=== PATIENT | male | born 1970 | race Caucasian/White ===

== ENCOUNTER → 2019-03-02 | Outpatient (CLI) | payer OTHER ==
[~2019-03-02] MED LIST: IOHEXOL 300 MG/ML 75 ML VIAL. IV ONE
--- NOTE | 2019-03-02 16:58 | RAD ---
CT study of the pelvis with contrast Clinical indications: Prior hernia repair surgery. Right groin pain where mesh was placed. TECHNIQUE: After IV infusion of 75 cc of Omnipaque 300, helical CT scanning of the pelvis was performed. PQRS compliance Statement One or more of the following individualized dose reduction techniques were utilized for this study: 1. Automated exposure control 2. Adjustment of the mA and/or kV according to patient size 3. Use of iterative reconstruction technique COMPARISON: None available. FINDINGS: No inguinal hernia or foreign body is evident. No soft tissue mass or abscess is evident. No enlarged pelvic lymphadenopathy is evident. Urinary bladder wall is smooth. No free air or free fluid or mesenteric edema is seen within the pelvis. No lytic process is evident. IMPRESSION: No significant CT abnormality is evident. Electronically signed by: Kelvin Brown MD (03/02/2019 4:56 PM) [id number]
== END | disposition home or self-care (01) ==
LOC: CT 11:02
PROVIDERS: ATTEND Surgery
DX: R10.30 Lower abdominal pain, unspecified (principal)
CPT/HCPCS: 72193; Q9967

== ENCOUNTER → 2020-12-12 | Outpatient (CLI) | payer OTHER ==
[~2020-12-12] MED LIST changes: +HYDR25TA10 PO; -IOHEXOL 300 MG/ML 75 ML VIAL. IV ONE; +MONT10TA80 PO
== END ==
LOC: LAB 13:00
PROVIDERS: ATTEND Nurse Anesthetist, Certified Registered
DX: Z01.812 Encounter for preprocedural laboratory examination (principal); U07.1 COVID-19
CPT/HCPCS: U0003

== ENCOUNTER 2022-03-01 10:18 | Emergency (ER) | payer OTHER ==
[~2022-03-01] VITALS: Ht 180.3 cm; Wt 94.0 kg
--- NOTE | 2022-03-01 10:36 | PHYS DOC ---
General Adult EDM: Chief Complaint: CHEST PAIN HPI: HPI: Patient is a 51-year-old male who presents to the emergency department for right-sided chest wall tenderness. Patient reports that he was placed on lisinopril 2 weeks ago and since then has had a cough. He reports that his cough is gotten worse and he started experiencing right-sided lower rib pain that he describes as a stabbing pain with cough. He reports he feels that his lungs are irritated. He rates his pain 3 out of 10. No radiation of pain. No treatment for pain. Patient denies fevers, shortness of breath, nausea, vomiting. Only medical history is hypertension. He does not smoke. Patient's primary care provider is at [facility]. (MARTI ANDRE APRN) Review of Systems: Review of Systems: Constitutional: See HPI Respiratory: See HPI Cardiovascular: See HPI GI: See HPI Musculoskeletal: See HPI (MARTI ANDRE APRN) Allergies: Allergies: Allergies Coded Allergies Type Severity Reaction Last Updated Verified No Known Drug Allergies 03/02/19 No (MARTI ANDRE APRN) Physical Exam: PE: Constitutional: Well developed, well nourished, no acute distress, non-toxic appearance. [] HENT: Normocephalic, atraumatic, bilateral external ears normal, oropharynx moist, no oral exudates, nose normal. [] Eyes: PERRL, EOMI, conjunctiva normal, no discharge. [] Neck: Normal range of motion, no tenderness, supple, no stridor. [] Cardiovascular:Heart rate regular rhythm, no murmur, sternal and right sided rib tenderness with palpation segments Lungs & Thorax: Bilateral breath sounds clear to auscultation [] Abdomen: Bowel sounds normal, soft, no tenderness, no masses, no pulsatile masses. [] Skin: Warm, dry, no erythema, no rash. [] Back: No tenderness, normal range of motion Extremities: No tenderness, no cyanosis, no clubbing, ROM intact, no edema. [] Neurologic: Alert and oriented X 3, normal motor function, normal sensory function, no focal deficits noted. [] Psychologic: Affect normal, judgement normal, mood normal. [] (MARTI ANDRE APRN) Current Patient Data: Labs: Laboratory Tests Test 03/01/22 10:40 White Blood Count 5.3 x10^3/uL Red Blood Count 5.12 x10^6/uL Hemoglobin 15.8 g/dL Hematocrit 45.6 % Mean Corpuscular Volume 89 fL Mean Corpuscular Hemoglobin 31 pg Mean Corpuscular Hemoglobin Concent 35 g/dL Red Cell Distribution Width 12.7 % Platelet Count 251 x10^3/uL Neutrophils (%) (Auto) 49 % Lymphocytes (%) (Auto) 42 % Monocytes (%) (Auto) 7 % Eosinophils (%) (Auto) 1 % Basophils (%) (Auto) 1 % Neutrophils # (Auto) 2.6 x10^3uL Lymphocytes # (Auto) 2.2 x10^3/uL Monocytes # (Auto) 0.4 x10^3/uL Eosinophils # (Auto) 0.1 x10^3/uL Basophils # (Auto) 0.1 x10^3/uL Sodium Level 140 mmol/L Potassium Level 4.2 mmol/L Chloride Level 106 mmol/L Carbon Dioxide Level 26 mmol/L Anion Gap 8 Blood Urea Nitrogen 25 mg/dL Creatinine 1.1 mg/dL Estimated GFR (Cockcroft-Gault) 70.6 BUN/Creatinine Ratio 23 Glucose Level 100 mg/dL Calcium Level 9.0 mg/dL Total Bilirubin 0.5 mg/dL Aspartate Amino Transf (AST/SGOT) 18 U/L Alanine Aminotransferase (ALT/SGPT) 47 U/L Alkaline Phosphatase 71 U/L Troponin I High Sensitivity 5 ng/L Total Protein 7.1 g/dL Albumin 4.1 g/dL Albumin/Globulin Ratio 1.4 Current Medications Medications (Trade) Dose Ordered Sig/Jovita Route PRN Reason Start Time Stop Time Status Last Admin Dose Admin Morphine Sulfate (Morphine 2mg Syringe) 2 mg 1X ONCE IV 03/01/22 10:45 03/01/22 10:46 DC (MARTI ANDRE ORTHODONTIST ASSISTANT) EKG: EKG: [] EKG performed by ER staff at 1042 shows sinus rhythm with a rate of 73, QTC is 424, no STEMI read by Dr. Bonner at 1044 (MARTI ANDRE ORTHODONTIST ASSISTANT) Radiology/Procedures: Radiology/Procedures: []PROCEDURE: CHEST PA & LATERAL PA and lateral views of the chest. Comparison: None. Indication: Chest pain Findings: The heart size is normal. No pneumothorax or effusion. No air space or interstitial disease. The bony structures are intact. Impression: 1. No acute cardiopulmonary process. Electronically signed by: Ashish Cabrera MD (03/01/2022 11:02 AM) [id number] DICTATED AND SIGNED BY: ASHISH CABRERA MD DATE: 03/01/22 110 CC: LANDON HUMPHRIES; MARTI ANDRE APRN ~ (MARTI ANDRE APRN) Heart Score: C/O Chest Pain: Yes HEART Score for Chest Pain: HEART Score for Chest Pain Response (Comments) Value History Slighlty/Non-Suspicious 0 Age >45 - < 65 1 Risk Factors 1 or 2 Risk Factors 1 Total 2 Risk Factors: Risk Factors: DM, Current or recent (<one month) smoker, HTN, HLP, family history of CAD, obesity. Risk Scores: Score 0 - 3: 2.5% MACE over next 6 weeks - Discharge Home Score 4 - 6: 20.3% MACE over next 6 weeks - Admit for Clinical Observation Score 7 - 10: 72.7% MACE over next 6 weeks - Early Invasive Strategies (MARTI ANDRE APRN) Course & Med Decision Making: Course & Med Decision Making Pertinent Labs and Imaging studies reviewed. (See chart for details) [] Patient resents to the emergency department for chest pain and cough after being placed on lisinopril. Chest pain is worse with cough and it is reproducible with palpation. Work-up in the ER troponin EKG to ensure there is not a cardiac cause. She was chest x-ray performed to rule out pneumonia or rib injury. Patient treated with pain medication. Patient reports that he has a follow-up appointment with his primary care provider on Friday. Patient's lab work is unremarkable. His chest x-ray shows no acute findings. Patient is likely experiencing musculoskeletal/chest wall tenderness due to his cough. He is advised to take anti-inflammatory medications and follow-up with his doctor on Friday regarding medication adjustment. I discussed with patient all findings and diagnostic testing as well as the need to follow-up with PCP for further evaluation and treatment or return to the ER if any new or worsening symptoms. Strict return precautions were also discussed at length. Patient voiced understanding and agreement with the plan. Patient is hemodynamically stable at the time of disposition. (MARTI ANDRE APRN) Dragon Disclaimer: Dragon Disclaimer: This electronic medical record was generated, in whole or in part, using a voice recognition dictation system. (MARTI ANDRE APRN) Attending Co-Sign The patient was seen and interviewed as well as examined at the bedside. The chart was reviewed. The case was discussed. Agree with the plan of care. (ALLIE BONNER DO) Departure Departure: Impression: Primary Impression: Chest wall pain Disposition: HOME / SELF CARE / HOMELESS Condition: GOOD Referrals: LANDON HUMPHRIES (PCP) Patient Instructions: Chest Wall Pain Additional Instructions: You were seen in the emergency department for chest pain. At this time, does not appear that you are experiencing acute coronary syndrome. It is likely that your chest pain is musculoskeletal in nature. Chest x-ray did not show any acute findings. Please take anti-inflammatory medications and apply warm moist heat to the area of your pain. Follow-up with your primary care provider on Friday regarding your ER visit as you may need to change your antihypertensive medications. Return to the emergency department if you develop worsening of your chest pain, shortness of breath, dizziness/syncope, intractable nausea or vomiting or any new or worsening concerns. MARTI ANDRE APRN Mar 01, 2022 10:36 ALLIE BONNER DO Mar 02, 2022 07:55
[2022-03-01 10:44] VITALS: BP 146/85
[2022-03-01] MEDS ORDERED: MORPHINE SULFATE 2 MG/ML DISP.SYRIN. IV ONE (10:45)
[2022-03-01 10:53] LABS: BASO # 0.1 x10^3/uL (0.0-0.2); BASO % 1 % (0-3); EOS # 0.1 x10^3/uL (0.0-0.7); EOS % 1 % (0-3); HEMATOCRIT 45.6 % (39.0-53.0); HEMOGLOBIN 15.8 g/dL (13.0-17.5); LYMPH # 2.2 x10^3/uL (1.0-4.8); LYMPH % 42 % (24-48); MEAN CORPUSCULAR HEMOGLOBIN 31 pg (25-35); MEAN CORPUSCULAR HGB CONC 35 g/dL (31-37); MEAN CORPUSCULAR VOLUME 89 fL (79-100); MONO # 0.4 x10^3/uL (0.0-1.1); MONO % 7 % (0-9); NEUT # 2.6 x10^3uL (1.8-7.7); NEUT % 49 % (31-73); PLATELET COUNT 251 x10^3/uL (140-400); RED BLOOD COUNT 5.12 x10^6/uL (4.30-5.70); RED CELL DISTRIBUTION WIDTH 12.7 % (11.5-14.5); WHITE BLOOD COUNT 5.3 x10^3/uL (4.0-11.0)
[2022-03-01 11:00] LABS: CREATININE 1.1 mg/dL (0.7-1.3); GFR 70.6; POTASSIUM 4.2 mmol/L (3.5-5.1)
--- NOTE | 2022-03-01 11:05 | RAD ---
PA and lateral views of the chest. Comparison: None. Indication: Chest pain Findings: The heart size is normal. No pneumothorax or effusion. No air space or interstitial disease. The bon y structures are intact. Impression: 1. No acute cardiopulmonary process. Electronically signed by: Ashish Cabrera MD (03/01/2022 11:02 AM) [id number]
[2022-03-01 11:07] LABS: ALBUMIN 4.1 g/dL (3.4-5.0); ALBUMIN/GLOBULIN RATIO 1.4 (1.0-1.7); TOTAL BILIRUBIN 0.5 mg/dL (0.2-1.0); TOTAL PROTEIN 7.1 g/dL (6.4-8.2)
--- NOTE | 2022-03-01 18:36 | EKG ---
[address] [address] Test Date: 2022-03-01 Test Time: 10:42:42 Pat Name: TATIANA MORTON Department: Room: Gender: M Mutuel Clerk: BLAIRE : 1970 Requested By: MARTI ANDRE Order Number: [id number] Reading MD: Measurements Intervals Correll Rate: 73 P: -28 OR: 154 QRS: 23 QRSD: 94 T: 13 QT: 382 QTc: 424 Interpretive Statements SINUS RHYTHM INCOMPLETE RIGHT BUNDLE BRANCH BLOCK OTHERWISE NORMAL ECG RI6.01 No previous ECG available for comparison
== END 2022-03-01 11:37 | disposition home or self-care (01) ==
LOC: ER 10:18
DX: R07.81 Pleurodynia (principal); R05.9 Cough, unspecified
CPT/HCPCS: 36415; 71046; 80053; 84484; 85025; 93005; 99285